=== PATIENT | male | born 1950 | race Hispanic/Latino ===

== ENCOUNTER 2019-03-09 05:52 | Day surgery (SDC) | payer OTHER ==
[2019-03-07 16:08] VITALS: BP 162/91
[2019-03-07 16:14] LABS: INR 0.89 (0.85-1.15); PARTIAL THROMBOPLASTIN TIME 27.5 SEC (26.3-35.5); PROTHROMBIN TIME 9.4 SEC (9.6-11.6)
[2019-03-07 16:20] LABS: CREATININE 1.2 mg/dL (0.5-1.5); POTASSIUM 4.4 mmol/L (3.5-5.1)
[2019-03-07 16:23] LABS: BASOPHILS % (AUTO) 0.3 % (0.0-5.0); EOSINOPHILS % (AUTO) 1.8 % (0.0-8.0); HEMATOCRIT 39.9 % (42-54); LYMPHOCYTES % (AUTO) 20.6 % (21.0-51.0); MEAN CORPUSCULAR HGB CONC 33.1 g/dL (32.0-36.0); MEAN CORPUSCULAR VOLUME 87.7 fL (79-99); MONOCYTES % (AUTO) 6.6 % (3.0-13.0); NEUTROPHILS % (AUTO) 70.2 % (40.0-77.0); PLATELET COUNT (AUTO) 196 K/uL (130-400); RED BLOOD CELL COUNT(AUTO) 4.55 MIL/uL (4.50-6.20); WHITE BLOOD COUNT (AUTO) 7.8 K/uL (4.8-10.8)
[2019-03-07 16:36] LABS: APPEARANCE,URINE Clear (CLEAR); BILIRUBIN,URINE Negative (NEGATIVE); COLOR,URINE Yellow (YELLOW); GLUCOSE, URINE (UA) Negative (NEGATIVE); KETONES,URINE Negative (NEGATIVE); LEUKOCYTE ESTERASE ,URINE Negative (NEGATIVE); NITRATE,URINE Negative (NEGATIVE); OCCULT BLOOD,URINE Negative (NEGATIVE); PH,URINE 7.5 (5.0-8.0); PROTEIN,URINE Negative (NEGATIVE); UROBILINOGEN,URINE 0.2 mg/dL (0.2-1.0)
[2019-03-09] VITALS (10 sets, daily range): BP systolic 129–159; BP diastolic 82–94
[~2019-03-09] VITALS: Ht 163.8 cm; Wt 78.9 kg
[2019-03-09] MEDS ORDERED: SODIUM CHLORIDE 0.9% 1000ML 1,000 ML IV ONE (06:36)
[2019-03-09] MEDS ORDERED: SODIUM BICARB 50MEQ 50ML VIAL ONE (07:40)
[2019-03-09] MEDS ORDERED: BIVALIRUDIN 250 MG/VIAL IV ONE (07:40)
[2019-03-09] MEDS ORDERED: HEPARIN SODIUM 1000UNIT/ML 10ML VIAL ONE (07:41)
[2019-03-09] MEDS ORDERED: LIDOCAINE HCL 2% 20ML ONE (07:41)
[2019-03-09] MEDS ORDERED: NITROGLYCERIN 50 MG/D5% WATER 1 BOT ONE (07:41)
[2019-03-09] MEDS ORDERED: IOHEXOL 350 MG/ML 100ML INFUS..BTL IV ONE (07:41)
[2019-03-09] MEDS ORDERED: IOHEXOL-350 50ML VIAL IV ONE (07:41)
[2019-03-09] MEDS ORDERED: NICARDIPINE HCL 25 MG/10 ML ML IV ONE (07:44)
[2019-03-09] MEDS ORDERED: MIDAZOLAM HCL 1 MG/ML 2ML VIAL ONE (07:50)
[2019-03-09] MEDS ORDERED: FENTANYL CITRATE PF 50 MCG/1 ML 2ML VIAL ONE (07:50)
--- NOTE | 2019-03-09 13:35 | NUR ---
CONSULT DR. LUIS IN ROOM AND TALKED TO PT AND BROTHER. PT MAY BE DISCHARGED TODAY. DR. LUIS OFFICE WILL GET IN TOUCH WITH PT RE SURGERY.
--- NOTE | 2019-03-09 14:10 | NUR ---
DISCHARGE PT DISCHARGED VIA WHEELCHAIR WITH BROTHER. PT STABLE. DENIES PAIN. CATH SITE TO RIGHT RADIAL SOFT, DRESSING DRY AND INTACT, NO OOZING NO HEMATOMA NOTED. DISCHARGE INSTRUCTIONS GIVEN TO BROTHER AND PT , VERBALIZED UNDERSTANDING.
== END 2019-03-09 14:10 | disposition home or self-care (01) ==
LOC: DAH 05:52
PROVIDERS: ATTEND Internal Medicine Cardiovascular Disease
DX: I35.0 Nonrheumatic aortic (valve) stenosis (principal); I25.10 Atherosclerotic heart disease of native coronary artery without angina pectoris; Z79.899 Other long term (current) drug therapy; Z82.49 Family history of ischemic heart disease and other diseases of the circulatory system
CPT/HCPCS: 36415; 71045; 80048; 81003; 85025; 85610; 85730; 93005; 93454; A4215; A4216; A4221; A4222; A4223 ×3; A4606; A4663; C1769; C1894; J1644 ×2; J2250; J3010; J3490 ×4; J7030; Q9965 ×2; Q9967; 99156; 99157; J0583